=== PATIENT | male | born 1990 | race African-American/Black ===

== ENCOUNTER 2017-11-10 02:51 | Emergency (ER) | payer OTHER ==
[~2017-11-10] VITALS: Ht 177.8 cm; Wt 74.8 kg
[2017-11-10 02:52] VITALS: BP 124/82
[2017-11-10] MEDS ORDERED: HYDROCORTISONE30 G9 RECTAL (03:08)
== END 2017-11-10 03:22 | disposition home or self-care (01) ==
LOC: ER 02:51
DX: K64.4 Residual hemorrhoidal skin tags (principal); F17.210 Nicotine dependence, cigarettes, uncomplicated